=== PATIENT | female | born 1985 | race Caucasian/White ===

== ENCOUNTER 2020-06-27 22:16 | Emergency (ER) | payer SELFPAY ==
[2020-06-27 22:17] VITALS: BP 122/76; PULSE 75; RESP 18; TEMP 36.2; O2SAT 98; BMI 26.6
--- NOTE | 2020-06-27 22:36 | ED.DCSUM_ITS ---
- ER Visit Summary Date of Service: 06/27/20 Chief Complaint: Slipped and fell complaining lower back pain History of Present Illness: The patient is a 35 F history of prior compression fracture to her back. Prior appendectomy and gastric bypass. No prior back surgery. Patient has a history of compression fracture. States she was leaving her house tonight slipped and fell landing on her buttock on her porch. Plan low back pain. No bowel or bladder incontinence. No radiation to her legs. No weakness. Did not hit her head. No LOC. No neck pain. Prior to the fall she was feeling fine. Physical Examination: Young female no acute distress vital signs stable afebrile. H EENT exam unremarkable. No signs of trauma to her face. She has multiple tattoos and piercings. C-spine nontender. Trachea midline. Lungs clear to auscultation bilaterally. Heart regular rhythm no murmur. Chest were nontender. Abdomen soft nontender normal bowel sounds no peritoneal signs. Pelvic girdle intact. Patient moving all 4 extremities. Neurovascular intact. Nontender. No deformity. Normal range of motion. Normal strength and sensation. Both lower extremities have normal medial thigh sensation. No cauda equina. No saddle anesthesia. Back exam C-spine and T-spine nontender diffuse tenderness over the LS-spine and also perispinal soft tissues. No ecchymosis or bruising. Neurologically she is awake and alert with no focal motor or sensory deficits. Again no signs of cauda equina. Test Results: Offered LS-spine x-ray patient deferred. She stated I do not think I broke anything. Emergency Department Course and Treatment: [place] p.o. x2 here. Treatment Plan: Ice to the back. Hot shower warm bath. Massage. Alternate Tylenol Motrin for pain. Follow-up if not improving. X-ray if not improving. Disposition: Discharge Impression: Acute fall Lumbar strain and contusion This note was generated with [employer] dictation software. It may contain incorrect words, spelling, and punctuation that were not noted in review of the chart prior to signing ED Disposition - Plan for ED Patient: Referrals: NOT,DEFINED [Primary Care Provider] -
--- NOTE | 2020-06-27 22:39 | ED.DEP ---
ED Disposition - Plan for ED Patient: Disposition: Home or Assisted Living Instructions: ED Contusion Back Referrals: Wesly Robert MD [NON-STAFF] - 1 Week if not improving Additional Instructions: History her back to decrease inflammation. Hot shower warm bath and massage to decrease muscle spasm and tightening. Alternate Motrin for pain and inflammation and Tylenol for pain. Follow-up with not improving or return if worse. If not improving you may need an x-ray to rule out a compression fracture.
[2020-06-27 22:49] VITALS: RESP 16
[2020-06-27] MEDS: HYDROcodone Bitartrate/Apap 5/325 Tablet PO (22:51)
== END 2020-06-27 22:56 | disposition home or self-care (01) ==
LOC: ED 22:56
PROVIDERS: Emergency Provider Emergency Medicine
DX: S39.012A Strain of muscle, fascia and tendon of lower back, initial encounter (principal); S30.0XXA Contusion of lower back and pelvis, initial encounter; W01.0XXA Fall on same level from slipping, tripping and stumbling without subsequent striking against object, initial encounter; Y93.9 Activity, unspecified; Y92.9 Unspecified place or not applicable; Z98.84 Bariatric surgery status; Z72.0 Tobacco use
CPT/HCPCS: 99283

== ENCOUNTER 2020-08-15 13:16 | Emergency (ER) | payer SELFPAY ==
[2020-08-15 13:16] VITALS: BP 135/67; PULSE 98; RESP 16; TEMP 36.3; O2SAT 99; BMI 26.8
--- NOTE | 2020-08-15 13:20 | RAD_ITS ---
STUDY: X-RAY - UNILATERAL RIBS ( LEFT ) WITH CHEST REASON FOR EXAM: Female, 35 years old. ANTERIOR MID LEFT RIB PAIN X2 DAYS, NKI. PT UNABLE TO REMOVE PIERCINGS FOR EXAM TECHNIQUE - RIBS: 4 view(s) of the ribs. TECHNIQUE - CHEST: Single PA view of the chest. COMPARISON: None. FINDINGS - RIBS: Normal visualized ribs without a demonstrated fracture. FINDINGS - CHEST: The lungs are clear and expanded. There is no demonstrated pleural abnormality. Normal size heart. Normal mediastinum and rocco. Normal visualized pulmonary arteries. Normal visualized aortic arch and descending thoracic aorta. Normal visualized thoracic spine. Normal visualized ribs, clavicles, and shoulders. There is no demonstrated abnormality of the visualized soft tissue structures of the upper abdomen. RAD/Ribs Uni Min 3V w/PA Chest IMPRESSION: RIBS: Normal x-ray examination of the ribs. CHEST: Normal x-ray examination of the chest. Electronically Signed: Wing Cali, at 13:50 EDT , Service support ,
--- NOTE | 2020-08-15 14:27 | ED.DCSUM_ITS ---
History of Present Illness Chief Complaint: Chest Other Narrative: Patient presents with left rib pain after a fall. She has reproducible left- sided chest pain she has no fever chills cough or congestion she has no back pain. She has no difficulty breathing. She also wants a refill for herpes medication she just had an outbreak and did not have any medications but it seems to be subsiding and it is now almost gone. Past Medical History - Allergies and Home Meds Allergies/Adverse Reactions: Allergies aspirin Allergy (Verified 08/15/20 13:18) Anaphylaxis Sulfa (Sulfonamide Antibiotics) Allergy (Verified 08/15/20 13:18) Hives Primary Care Physician: Care Physician,No Primary [Primary Care Provider] - Past Medical History: - - History of gastric bypass Smoking Status: Current every day smoker Review of Systems General: Denies: Fever Cardiovascular: Reports: Chest pain. Denies: Palpitations, Heart racing Respiratory: Denies: Dyspnea, Cough, Sputum Gastrointestinal: Denies: Abdominal pain, Nausea, Vomiting Genitourinary: Denies: Dysuria Musculoskeletal: Denies: Myalgias Skin: Denies: Rash Neurological: Denies: Headache Psych: Denies: Depression Hematologic: Denies: Easy bruising Physical Exam Vital Signs/Narrative: Vital Signs Temp Pulse Resp BP Pulse Ox 08/15/20 13:16 97.3 F L 98 16 135/67 H 99 General: Well nourished, Well developed ENT: Moist mucous membranes Cardiovascular: Regular rate, Regular rhythm Respiratory: No distress, Chest tenderness, - - There is left lower rib tenderness to palpation it is quite reproducible although I do not see any bruising. Abdomen: Soft, Nontender Back: Nontender, Normal Inspection. Negative for: CVA tenderness Extremities: Nontender, No edema Skin: Normal color Neurological: Normal Strength, Normal Sensation Diagnostic/Tx/Re-eval - Medical Decision Making Patient has an unremarkable x-ray. There is no evidence of fractures. I will treat her with analgesia per her request I will give her Valtrex for the next outbreak. ED Disposition - Plan for ED Patient: Disposition: Psychiatric Hospital or Unit Diagnosis: Rib contusion, Genital herpes Instructions: ED CHEST CONTUSION, ED Herpes Simplex Virus Type 2 Prescriptions: Naproxen [Naprosyn] 500 mg PO BID PRN #20 tab Prescription Printed Valacyclovir HCl [Valtrex] 1,000 mg PO BID #6 tab Prescription Printed Referrals: Care Physician,No Primary [Primary Care Provider] -
== END 2020-08-15 14:46 | disposition home or self-care (01) ==
PROVIDERS: Emergency Provider Emergency Medicine
DX: S20.212A Contusion of left front wall of thorax, initial encounter (principal); A60.00 Herpesviral infection of urogenital system, unspecified; W19.XXXA Unspecified fall, initial encounter; Y93.9 Activity, unspecified; Y92.9 Unspecified place or not applicable; Z98.84 Bariatric surgery status; F17.200 Nicotine dependence, unspecified, uncomplicated
CPT/HCPCS: 71101; 99282

== ENCOUNTER 2020-10-08 16:26 | Emergency (ER) | payer SELFPAY ==
[2020-10-08 16:27] VITALS: BP 125/76; PULSE 91; RESP 16; TEMP 35.9; O2SAT 100; BMI 25.8
--- NOTE | 2020-10-08 16:39 | ED.VIS.GEN ---
History of Present Illness Chief Complaint: Back Informant: Patient Narrative: Patient presents for the evaluation of back pain. The patient tells me the symptoms began after yesterday morning of the day before. Is progressively gotten worse. She notes painful range of motion. She notes sharp shooting pains to her hips. She tells me that she gets paresthesias in the left leg. This is a recurrent issue for the past several years. Tells me she was thrown from a horse and sustained several back fractures about 4 years ago for which she was treated in [place]. She tells me she was supposed to follow-up with spine surgery but missed the appointments. She denies any known trauma. She denies any bowel or bladder dysfunction. No fevers chills rashes or IV drug use. No neurologic deficits. She tells me that normally she can rest for a day or 2 and it resolves. Today she attempted to work but could not. Past Medical History - Allergies and Home Meds Allergies/Adverse Reactions: Allergies aspirin Allergy (Verified 10/08/20 16:29) Anaphylaxis Sulfa (Sulfonamide Antibiotics) Allergy (Verified 10/08/20 16:29) Hives Primary Care Physician: Care Physician,No Primary [Primary Care Provider] - Past Medical History: - - Traumatic lumbar fractures Surgical History: noncontributory Lives: Roommate Smoking Status: Unknown if ever smoked Drugs: None Review of Systems General: Denies: Chills, Fever, Sweats Eyes: Denies: Visual changes - bilaterally, Diplopia ENT: Denies: Rhinorrhea, Sore throat Cardiovascular: Denies: Chest pain, Palpitations Respiratory: Denies: Dyspnea, Cough, Dyspnea on exertion Gastrointestinal: Denies: Abdominal pain, Nausea, Vomiting, Diarrhea, Melena, Hematochezia Genitourinary: Denies: Dysuria, Hematuria, Frequency Musculoskeletal: Reports: Back pain. Denies: Extremity Pain Skin: Denies: Rash, Wounds Neurological: Reports: Parasthesia. Denies: Headache, Weakness, Numbness Physical Exam Vital Signs/Narrative: Vital Signs Temp Pulse Resp BP Pulse Ox 10/08/20 16:27 96.6 F L 91 16 125/76 H 100 Inital Vital Signs reviewed: Yes General: Well nourished, Well developed, No Acute Distress Head: Normocephalic, Atraumatic Eyes: Perrl, EOMI ENT: Moist mucous membranes, No rhinorrhea Neck: Supple, Nontender Cardiovascular: Regular rate, Regular rhythm, No murmurs Respiratory: No distress, CTA bilaterally, Chest nontender Abdomen: Soft, Nontender, Nondistended, Normal bowel sounds Back: - - Patient has slow painful range of motion. She has paraspinal lumbar muscle spasm. There are no skin findings to suggest abscess. Extremities: Nontender, No edema Skin: Normal color, No rash Neurological: Alert, Oriented x3, Cranial nerves II-XII grossly intact, Normal Strength, Normal Sensation Psychological: Normal affect, Normal Mood Diagnostic/Tx/Re-eval - Medical Decision Making Patient woke up with symptoms either yesterday or the day before. She has no neurologic deficits. She has exam consistent with muscular spasm. I have low suspicion for cauda equina, abscess, or acutely herniated disc. I am going to write for a few [place], Motrin, Flexeril and going to recommend she follow-up with spine. ED Disposition - Plan for ED Patient: Disposition: Home or Assisted Living Diagnosis: Lumbar paraspinal muscle spasm Instructions: ED Back Spasm, No Trauma Prescriptions: cycloBENZAPRine HCl [Flexeril] 10 mg PO TID PRN #15 tab PRN Reason: Muscle Spasm Prescription Printed Ibuprofen [Motrin] 800 mg PO TID PRN PRN #20 tab PRN Reason: Pain Prescription Printed Hydrocodone Bitart/Apap 5-325 [[place] 5MG-325MG] 1 tab PO Q6H PRN PRN 3 Days #10 tab PRN Reason: Pain Prescription Printed Referrals: Eliot Edgar DO [STAFF PHYSICIAN] - As soon as possible
== END 2020-10-08 16:53 | disposition home or self-care (01) ==
LOC: ED 16:51
PROVIDERS: Emergency Provider Emergency Medicine
DX: M62.830 Muscle spasm of back (principal); M54.5 Low back pain; R20.2 Paresthesia of skin
CPT/HCPCS: 99282

== ENCOUNTER 2020-11-23 07:40 | Observation (INO) | payer MEDICAID, SELFPAY ==
[2020-11-23] VITALS (16 sets, daily range): BP systolic 99–127; BP diastolic 56–75; PULSE 51–70; RESP 16–17; TEMP 36.4–37.2; O2SAT 94–100; BMI 25.8
--- NOTE | 2020-11-23 08:09 | ED.VISSUMM ---
- ER Visit Summary Date of Service: 11/23/20 Chief Complaint: Abdominal pain History of Present Illness: The patient is a 35 F history of prior gastric bypass surgery in which she used to weigh over 300 pounds and currently weighs 160. Patient states that after the surgery she did develop issues with gastric and esophageal ulcers. She has had bleeding ulcers in the past. States that she currently has no physician. Is been out of her omeprazole which she is supposed to take 40 mg a day. Was taking it more frequently because she was developing pain. Has been out of medications last 6 days. Has had burning left upper quadrant abdominal pain. Associated nausea and vomiting. Associated dark stools. And at times small amount of blood in her emesis. No clots. She denies fever or chills. No right upper or right lower quadrant abdominal pain. She is also had a prior appendectomy and . She is urinating and having bowel movements. Physical Examination: Young female vital signs are stable and afebrile. She does not look septic or toxic. HEENT exam unremarkable. Neck nontender. Lungs clear to auscultation bilaterally. Heart regular rhythm no murmur. Abdomen is soft. Tender in the left upper quadrant. Normal bowel sounds. No peritoneal signs. She is moving all 4 extremities. Calves are nontender without edema. Neurologically awake and alert with no focal motor deficits. Skin unremarkable other than multiple tattoos. Test Results: White count 8. Hemoglobin is 8.8 we do not have any old labs on this patient she is never had a history of anemia I suspect that she has having blood loss from her ulcerations. And GI bleed. Chemistries are unremarkable normal BUN and creatinine. Liver enzymes and lipase were normal. Emergency Department Course and Treatment: Patient has left upper quadrant abdominal pain. Concern is for peptic ulcer disease exacerbation and/or bleeding ulcers. She will be treated with IV fluids, Zofran for nausea and IV Protonix. Labs are being obtained. Treatment Plan: Patient treated also with morphine and Zofran for pain and additional nausea. She is already been given Protonix. I discussed her labs with her. She is comfortable with admission. I have already spoken to the hospitalist. Disposition: Admission Impression: Acute abdominal pain secondary to suspected gastric ulcers Acute anemia secondary to suspected upper GI bleed History of prior gastric bypass History of peptic ulcer disease This note was generated with Dragon dictation software. It may contain incorrect words, spelling, and punctuation that were not noted in review of the chart prior to signing ED Disposition - Plan for ED Patient: Referrals: Care Physician,No Primary [Primary Care Provider] -
[2020-11-23] MEDS: Ondansetron 4 MG/2 ML Vial IV ×2 (08:14→08:58)
[2020-11-23] MEDS: 0.9% Normal Saline 1,000 ML 125 ML IV ×3 (08:14→22:02)
[2020-11-23 08:24] LABS: Absolute Lymphocyte Count 1.44 X10^3/uL (0.83-4.51); Basophil# 0.03 X10^3/uL; Basophil% 0.4 % (0-1); Eosinophil# 0.03 X10^3/uL; Eosinophils% 0.4 % (0-5); Hematocrit 31.7 % (37-47); Hemoglobin 8.8 g/dL (12.0-15.0); Lymphocyte # 1.44 X10^3/ul (4.0); Lymphocyte % 17.8 % (19-41); Mean Corp Hgb Conc 27.8 g/dL (32-36); Mean Corpuscular Hgb 18.2 pg (27.0-32.0); Mean Corpuscular Volume 65.5 fL (81-99); Mean Platelet Vol. 8.4 fl (6.2-12.0); Monocyte% 7.4 % (0-10); NRBC Flagged by Analyzer 0 % (0-5); Neutrophil # 5.98 X10^3/uL (2.7-7.7); Neutrophil % 73.6 % (47-70); Platelet Count 481 K/mm3 (150-450); RBC Distribution Width CV 17.9 % (11.6-14.6); RBC Distribution Width SD 41.5 fl (35.1-43.9); Red Blood Count 4.84 M/mm3 (4.2-5.4); White Blood Count 8.1 K/mm3 (4.4-11.0)
[2020-11-23 08:35] LABS: AST(SGOT) 9 U/L (15-37); Alanine Aminotransfer ALT/SGPT 15 U/L (13-56); Albumin, Serum 3.8 g/dL (3.2-5.0); Alkaline Phosphatase 71 U/L (45-117); Anion Gap 5 (5-15); BUN 8 mg/dL (7-18); BUN/Creat Ratio 11.4 RATIO (10-20); Calcium,Total 9.1 mg/dL (8.5-10.1); Chloride 106 mmol/L (98-107); EST Glomerular Filtration Rate 100 mL/min (>60); Est Glom Filt Rate - Afr Amer 121 mL/min (>60); Estimated Creatinine Clearance 104.01 ml/min; Glucose 99 mg/dL (74-106); Lipase 167 U/L (73-393); Potassium 3.9 mmol/L (3.5-5.1); Protein, Total 7.8 g/dL (6.4-8.2); Sodium Level 138 mmol/L (136-145)
[2020-11-23] MEDS: morphine 8 MG/ML Syringe IV (08:58)
--- NOTE | 2020-11-23 09:48 | HP.PCM_ITS ---
Problem List (1) Hypertension Status: Chronic (2) History of gastric bypass surgery Status: Chronic (3) History of anastomotic ulcer Status: Chronic (4) Acute GI bleed Status: Acute (5) Acute blood loss anemia Status: Acute History of Present Illness Date of Admission: 11/23/20 Chief Complaint: Hematemesis and melena for 3 to 4 days The patient is a 35 year old F history of morbid obesity status post gastric bypass surgery in 2016 and then repeat EGD in same year as per patient showed ulcer in her lower esophagus and gastric remnant probably marginal/anastomotic ulcer and history of recurrent GI bleed, anemia came to ER with progressive increase abdominal pain for 4 days. She ran out of her omeprazole about 6 days ago which she was taking 40 mg twice daily. She is having a small amount of coffee-ground emesis and black tarry melena small amount for last 4 days which is getting more frequent. Describes abdominal pain as mid central and upper, constant with heartburn and acid reflux. No fever or chills. Denies recent Covid related symptoms including cough, shortness of breath chest pain or suspected Covid exposure. In the ED, blood pressure in systolic 120s and heart rate in 90s. Patient had 80 mg IV Protonix bolus, ondansetron and morphine IV along with IV fluid normal saline 125 mill per hour. [] Past Medical History Past Medical History (Chronic Problems): Chronic Problems Hypertension (Chronic) History of gastric bypass surgery (Chronic) History of anastomotic ulcer (Chronic) Allergies aspirin Allergy (Verified 11/23/20 07:41) Anaphylaxis Sulfa (Sulfonamide Antibiotics) Allergy (Verified 11/23/20 07:41) Hives Home Medications: Ambulatory Orders Medication Instructions Recorded NK 11/23/20 Surgical History: noncontributory Smoking Status: Former smoker - Quit smoking prior to weight loss surgery Alcohol: None Drugs: None - *Family History Paternal History Items: Heart Disease Review of Systems Constitutional: Reports: Anorexia, Malaise, Weakness, Fatigue. Denies: Chills, Fever, Weight Change HEENT: Denies: Head Aches, Sinus Congestion, Sinus Drainage Cardiovascular: Denies: Chest Pain, Palpitations Respiratory: Denies: Cough, Shortness of breath at rest, Sputum production Gastrointestinal: Reports: Abdominal Pain, Hematemesis, Nausea, Melena, Vomiting. Denies: Hematochezia Genitourinary: Denies: Dysuria, Frequency, Hesitancy Musculoskeletal: Denies: Joint Pain, Joint Tenderness Skin: Denies: Rash, Wounds Neurological: Denies: Numbness, Tingling, Focal weakness Psychiatric: Denies: Anxiety, Depression, Homicidal Ideations, Suicidal Ideations Hematologic/ Lymphatic: Denies: Easy Bruising, Easy Bleeding VTE Information - Inpt Only VTE Present on Admission: No VTE Mechan Device Prophylaxis: SCD's VTE Pharm Prophylaxis ordered?: No Reason prophylaxis not ordered:: Medical Contraindication - Active GI bleed Patient Problems: Active and Suspected Problems Acute GI bleed (Acute) Acute blood loss anemia (Acute) - Physical Exam Vitals/I&O's: Vital Signs Temp Pulse Resp BP Pulse Ox 98.1 F 69 17 127/72 H 100 11/23/20 07:41 11/23/20 07:41 11/23/20 07:41 11/23/20 07:41 11/23/20 07:41 Oxygen Delivery Method Room Air Weight: 160 lb Body Mass Index (BMI) 25.8 General: Alert, Oriented x3, Cooperative HEENT: Atraumatic, PERRLA, EOMI, Normocephalic Oral: No Gingival or Mucosal Lesions/ Ulcerations, Dry Mucosa Neck: Supple, No JVD, Negative Carotid Bruits Lungs: Clear to auscultation, Normal air movement, No rhonchi, No wheeze, No rales Cardiovascular: Regular rate, Regular Rhythm, Normal S1, Normal S2, No murmurs Abdomen: Bowel Sounds Present, Soft, Non-Distended, Passing Flatus, Tender - Mild diffuse tenderness present in epigastrium, umbilical region and flanks. No guarding/rigidity. No palpable mass. Extremities: No edema, Capillary Refill Less than 3 Seconds Skin: No rashes, No breakdown Musculoskeletal: No Tenderness to Palpation of Joints or Extremities Neurological: Cranial nerves II-XII grossly intact, Deep Tendon Reflexes 2+/4 and Symmetrical, Neuro grossly intact, Motor Exam 5/5 strength throughout Psych/Mental Status: Normal Affect, Appropriate Microbiology Past 72 Hours 11/23/20 09:10 Mucosa - Nose SARS-CoV-2 Antigen (Rapid) - Final Laboratory Results 11/23/20 08:10: WBC 8.1, RBC 4.84, Hgb 8.8 L, Hct 31.7 L, MCV 65.5 L, MCH 18.2 L , MCHC 27.8 L, RDW Std Deviation 41.5, RDW Coeff of Deborah 17.9 H, Plt Count 481 H, MPV 8.4, Immature Gran % (Auto) 0.400, Neut % (Auto) 73.6 H, Lymph % (Auto) 17.8 L, [place] % (Auto) 7.4, Eos % (Auto) 0.4, Baso % (Auto) 0.4, Absolute Neuts (auto) 6.0, Absolute Lymphs (auto) 1.44, Nucleated RBC % 0 11/23/20 08:10: Sodium 138, Potassium 3.9, Chloride 106, Carbon Dioxide 27.0, Anion Gap 5, BUN 8, Creatinine 0.70, Estim Creat Clear Calc 104.01, Est GFR (MDRD) Af Amer 121, Est GFR (MDRD) Non-Af 100, BUN/Creatinine Ratio 11.4, Glucose 99, Calcium 9.1, Total Bilirubin 0.20, AST 9 L, ALT 15, Alkaline Phosph atase 71, Total Protein 7.8, Albumin 3.8, Globulin 4.0, Albumin/Globulin Ratio 1.0, Lipase 167 11/23/20 08:42: Blood Type A NEGATIVE, Antibody Screen NEGATIVE Current Medications Sodium Chloride () 1,000 mls @ 125 mls/hr IV .Q8H [facility] Last Admin: 11/23/20 08:14 Dose: 125 mls/hr Documented by: Assessment/Plan All Active Problems Acute GI bleed (Acute) Acute blood loss anemia (Acute) 35-year-old female with history of gastric bypass surgery and marginal/anastomotic ulcer came to ED with upper GI bleed and acute blood loss anemia 1. Acute upper GI bleed: Patient is being admitted in PCU. Patient had 80 mg IV Protonix bolus. Continue Protonix IV 40 mg twice daily. Monitor H&H every 8 hourly and if is less than 7 g, will transfuse PRBC. Type and crossmatch ordered by ER physician. Monitor intake and output and hydration status. Discussed with Dr. Beltran who is being consulted for EGD. Rapid SARS-CoV-2 antigen, preop requirement is done and negative. 2. Acute blood loss anemia: Patient hemoglobin 8.8 g with low MCV, MCH and MCHC and high RDW suggestive of iron deficiency anemia. 200 mg IV iron infusion ordered. After EGD will need further oral iron supplement. 3. Morbid ascites status post gastric bypass surgery and history of marginal/stenotic ulcer 4. Hypertension: Currently blood pressure is normotensive. VTE prophylaxis: Low risk. Bilateral SCDs. Inpatient E&M: 50176 Init Hosp L3
--- NOTE | 2020-11-23 10:27 | PCM.CONS.GEN ---
Problem List (1) Acute GI bleed Status: Acute (2) Acute blood loss anemia Status: Acute (3) History of anastomotic ulcer Status: Chronic (4) History of gastric bypass surgery Status: Chronic Reason for Consult Date of Consultation: 11/23/20 History of Present Illness: The patient is a 35 year old F history of morbid obesity status post gastric bypass surgery in 2016 and then repeat EGD in same year as per patient showed ulcer in her lower esophagus and gastric remnant probably marginal/anastomotic ulcer and history of recurrent GI bleed, anemia came to ER with progressive increase abdominal pain for 4 days. She ran out of her omeprazole about 6 days ago which she was taking 40 mg twice daily. She is having a small amount of coffee-ground emesis and black tarry melena small amount for last 4 days which is getting more frequent. Describes abdominal pain as mid central and upper, constant with heartburn and acid reflux. No fever or chills. Denies recent Covid related symptoms including cough, shortness of breath chest pain or suspected Covid exposure. In the ED, blood pressure in systolic 120s and heart rate in 90s. Patient had 80 mg IV Protonix bolus, ondansetron and morphine IV along with IV fluid normal saline 125 mill per hour. Past Medical History Past Medical History (Chronic Problems): Chronic Problems Hypertension (Chronic) History of gastric bypass surgery (Chronic) History of anastomotic ulcer (Chronic) Allergies aspirin Allergy (Verified 11/23/20 07:41) Anaphylaxis Sulfa (Sulfonamide Antibiotics) Allergy (Verified 11/23/20 07:41) Hives Home Medications: Ambulatory Orders Medication Instructions Recorded NK 11/23/20 Surgical History: appendectomy, gastric bypass - Patient had significant complications from her gastric bypass. Smoking Status: Former smoker - Quit smoking prior to weight loss surgery Alcohol: None Drugs: None - *Family History Paternal History Items: Heart Disease Review of Systems Constitutional: Reports: Anorexia, Malaise, Weakness Cardiovascular: Denies: Chest Pain, Chest Pressure, Chest Tightness, Palpitations Respiratory: Denies: Cough, Hemoptysis, Shortness of breath at rest, Shortness of breath upon exertion, Wheezing Gastrointestinal: Reports: Abdominal Pain Genitourinary: Denies: Dysuria, Frequency, Hematuria, Urgency Patient Problems: Active and Suspected Problems Acute GI bleed (Acute) Acute blood loss anemia (Acute) - Physical Exam Vitals/I&O's: Vital Signs Temp Pulse Resp BP Pulse Ox 98.1 F 70 16 119/75 100 11/23/20 10:16 11/23/20 10:16 11/23/20 10:16 11/23/20 10:16 11/23/20 10:16 Oxygen Delivery Method Room Air Weight: 160 lb Body Mass Index (BMI) 25.8 Intake and Output for Last 24 Hours 11/21/20 11/22/20 11/23/20 23:59 23:59 23:59 Intake Total 35 / 35 Balance 35 / 35 General: Alert, Oriented x3 Lungs: Clear to auscultation Cardiovascular: Regular rate, Regular Rhythm, No murmurs Abdomen: Bowel Sounds Present, Soft, Non-Distended, Tender Microbiology Past 72 Hours 11/23/20 09:10 Mucosa - Nose SARS-CoV-2 Antigen (Rapid) - Final Laboratory Results 11/23/20 08:10: WBC 8.1, RBC 4.84, Hgb 8.8 L, Hct 31.7 L, MCV 65.5 L, MCH 18.2 L, MCHC 27.8 L, RDW Std Deviation 41.5, RDW Coeff of Deborah 17.9 H, Plt Count 481 H, MPV 8.4, Immature Gran % (Auto) 0.400, Neut % (Auto) 73.6 H, Lymph % (Auto) 17.8 L, [place] % (Auto) 7.4, Eos % (Auto) 0.4, Baso % (Auto) 0.4, Absolute Neuts (auto) 6.0, Absolute Lymphs (auto) 1.44, Nucleated RBC % 0 11/23/20 08:10: Sodium 138, Potassium 3.9, Chloride 106, Carbon Dioxide 27.0, Anion Gap 5, BUN 8, Creatinine 0.70, Estim Creat Clear Calc 104.01, Est GFR (MDRD) Af Amer 121, Est GFR (MDRD) Non-Af 100, BUN/Creatinine Ratio 11.4, Glucose 99, Calcium 9.1, Total Bilirubin 0.20, AST 9 L, ALT 15, Alkaline Phosphatase 71, Total Protein 7.8, Albumin 3.8, Globulin 4.0, Albumin/Globulin Ratio 1.0, Lipase 167 11/23/20 08:42: Blood Type A NEGATIVE, Antibody Screen NEGATIVE Current Medications Sodium Chloride () 1,000 mls @ 125 mls/hr IV .Q8H [facility] Last Admin: 11/23/20 08:14 Dose: 125 mls/hr Documented by: Assessment/Plan All Active Problems Acute GI bleed (Acute) Acute blood loss anemia (Acute) Plan will be to perform an esophagogastrojejunoscopy. Risk benefits to the procedure including bleeding infection possible injury to intestines have been reviewed with the patient and the patient agrees to proceed. All questions asked were answered. Office Visits / Consults: [id number] IP Consult L3 - Modifier [id number]
--- NOTE | 2020-11-23 10:55 | PCS.PANDOC ---
PANDEMIC DOCUMENTATION INITIATED: Date: 11/23/20 Time: 8303
[2020-11-23 11:10] LABS: Magnesium 2.2 mg/dL (1.6-2.6)
--- NOTE | 2020-11-23 11:26 | OP.CCLET_ITS ---
11/23/2020 No Primary Care Physician Re : Upper GI endoscopy procedure for Andree Rojas Dear Care Physician This procedure was performed on Monday, November 23, 2020. My impressions and recommendations are as follows: Impressions : - LA Grade A reflux esophagitis. No specimens collected. - Normal cardia. - One non-bleeding jejunal ulcer with pigmented material No specimens collected. Recommendations : - [facility] to [facility]. - Full liquid diet. - Use Protonix (pantoprazole) 80 mg IV daily daily. - Repeat upper endoscopy in 6 weeks to evaluate the response to therapy. - Return to my office in 2 weeks. - It is fairly remarkable that the patient has 2 processes going on. She has significant esophagitis as well as a marginal ulcer. While in the hospital she will need to have aggressive proton pump therapy as well as Carafate and she will need to continue this going home. She should probably have a repeat upper endoscopy within 6 weeks to evaluate response to therapy. - Continue present medications. My findings are described in the full procedure note, which is enclosed. If I can be of further assistance, please feel free to contact me at Doctor phone number(s): , Fax: [phone], Work: . Sincerely, MD Berny Reis MD 11/23/2020 11:26:26 AM This report has been signed electronically.
--- NOTE | 2020-11-23 11:26 | OP.EGD_ITS ---
Patient Name: Andree Rojas Procedure Date: 11/23/2020 10:55 AM Date of : 1985 Age: 35 Procedure: Upper GI endoscopy Indications: Epigastric abdominal pain, Acute post hemorrhagic anemia, Coffee-ground emesis Providers: Berny Beltran MD Medicines: See the Anesthesia note for documentation of the administered medications Patient Profile: This is a 35 year old female. Refer to note in patient chart for documentation of history and physical. Complications: No immediate complications. Procedure: Pre-Anesthesia Assessment: - Prior to the procedure, a History and Physical was performed, and patient medications and allergies were reviewed. The patient's tolerance of previous anesthesia was also reviewed. The risks and benefits of the procedure and the sedation options and risks were discussed with the patient. All questions were answered, and informed consent was obtained. Prior Anticoagulants: The patient has taken no previous anticoagulant or antiplatelet agents. ASA Grade Assessment: II - A patient with mild systemic disease. After reviewing the risks and benefits, the patient was deemed in satisfactory condition to undergo the procedure. After obtaining informed consent, the endoscope was passed under direct vision. Throughout the procedure, the patient's blood pressure, pulse, and oxygen saturations were monitored continuously. The gastroscope was introduced through the mouth, and advanced to the afferent jejunal loop. The upper GI endoscopy was accomplished without difficulty. The patient tolerated the procedure well. Scope In: 11:10:58 AM Scope Out: 11:14:28 AM Total Procedure Duration Time 0 hours 3 minutes 30 seconds Findings: LA Grade C (one or more mucosal breaks continuous between tops of 2 or more mucosal folds, less than 75% circumference) esophagitis with no bleeding was found at the gastroesophageal junction. No biopsies or other specimens were collected for this exam. The cardia was normal. One non-bleeding cratered ulcer with pigmented material was found distal to the gastrojejunal anastomosis. The lesion was 7 mm in largest dimension. No biopsies or other specimens were collected for this exam. Impression: - LA Grade A reflux esophagitis. No specimens collected. - Normal cardia. - One non-bleeding jejunal ulcer with pigmented material No specimens collected. Recommendation: - Return patient to [facility] for [facility] care. - Full liquid diet. - Use Protonix (pantoprazole) 80 mg IV daily daily. - Repeat upper endoscopy in 6 weeks to evaluate the response to therapy. - Return to my office in 2 weeks. - It is fairly remarkable that the patient has 2 processes going on. She has significant esophagitis as well as a marginal ulcer. While in the hospital she will need to have aggressive proton pump therapy as well as Carafate and she will need to continue this going home. She should probably have a repeat upper endoscopy within 6 weeks to evaluate response to therapy. - Continue present medications. Procedure Code(s): --- Professional --- 88126, Esophagogastroduodenoscopy, flexible, transoral; diagnostic, including collection of specimen(s) by brushing or washing, when performed (separate procedure) Diagnosis Code(s): --- Professional --- K21.0, Gastro-esophageal reflux disease with esophagitis K28.9, Gastrojejunal ulcer, unspecified as acute or chronic, without hemorrhage or perforation R10.13, Epigastric pain D62, Acute posthemorrhagic anemia K92.0, Hematemesis CPT copyright 2017 [employer]. All rights reserved. The codes documented in this report are preliminary and upon payroll and benefits analyst review may be revised to meet current compliance requirements. MD Berny Reis MD 11/23/2020 11:26:26 AM This report has been signed electronically. Number of Addenda: 0 Note Initiated On: 11/23/2020 10:55 AM
[2020-11-23] MEDS: Sodium Ferric Gluconat 250 MG in 0.9% Normal Saline 250 ML 135 MG IV (12:06)
[2020-11-23] MEDS: oxyCODONE 5 MG Tablet PO (12:32)
[2020-11-23] MEDS: Acetaminophen 325 MG Tablet 650 MG PO (12:32)
[2020-11-23] MEDS: Sucralfate 1 GM Tablet PO ×3 (14:26→21:28)
--- NOTE | 2020-11-23 14:31 | CASEMGMT ---
SW spoke with patient regarding self pay status. She was on Medicaid, then she got a job and lost her Medicaid, and now she lost her job so she reapplied for Medicaid. She was approved, but has not received any information yet. She is not able to pay for her discharge medications as she has no job and no money. She just moved back to [facility]. ANGELITO gave her a packet of resources. ANGELITO also told her [facility] can assist patient's in need with d/c medications one time per year. ANGELITO told her that the pharmacy closes at 1p tomorrow so SW will try and pass along that her d/c meds need to be at the pharmacy prior to it closing so she can utilize [facility] prescription assistance program. Randi BLAS MSW
[2020-11-23 14:36] LABS: Hematocrit 26.7 % (37-47); Hemoglobin 7.6 g/dL (12.0-15.0)
[2020-11-23] MEDS: 0.9% Saline Lock 10 ML Syringe IV (18:19)
[2020-11-23] MEDS: HYDROmorphone 0.5 MG/0.5 ML SYRINGE IV ×2 (18:19→22:29)
[2020-11-23 20:14] LABS: Hematocrit 26.4 % (37-47); Hemoglobin 7.3 g/dL (12.0-15.0)
[2020-11-24 03:00] VITALS: PULSE 59
[2020-11-24 05:14] VITALS: BP 108/66; PULSE 61; RESP 18; TEMP 36.6; O2SAT 99
[2020-11-24] MEDS: HYDROmorphone 0.5 MG/0.5 ML SYRINGE IV (05:16)
[2020-11-24] MEDS: Sucralfate 1 GM Tablet PO (06:24)
[2020-11-24] MEDS: 0.9% Normal Saline 1,000 ML 125 ML IV (06:24)
[2020-11-24 07:00] VITALS: PULSE 61
[2020-11-24 08:01] LABS: Absolute Lymphocyte Count 1.47 X10^3/uL (0.83-4.51); Absolute Neutrophil Count 2.9 X10^3/uL (2.0-7.7); Basophil# 0.05 X10^3/uL; Eosinophil# 0.06 X10^3/uL; Eosinophils% 1.2 % (0-5); Hematocrit 27.9 % (37-47); Lymphocyte # 1.47 X10^3/ul (4.0); Lymphocyte % 29.3 % (19-41); Mean Corp Hgb Conc 28.7 g/dL (32-36); Mean Corpuscular Hgb 19.2 pg (27.0-32.0); Mean Corpuscular Volume 67.1 fL (81-99); Mean Platelet Vol. 8.9 fl (6.2-12.0); Monocyte# 0.51 X10^3/uL; Monocyte% 10.2 % (0-10); NRBC Flagged by Analyzer 0.4 % (0-5); Neutrophil # 2.91 X10^3/uL (2.7-7.7); Neutrophil % 57.9 % (47-70); Platelet Count 389 K/mm3 (150-450); RBC Distribution Width CV 18.1 % (11.6-14.6); RBC Distribution Width SD 42.5 fl (35.1-43.9); Red Blood Count 4.16 M/mm3 (4.2-5.4)
[2020-11-24 08:06] VITALS: O2SAT 100
[2020-11-24 08:31] LABS: Anion Gap 5 (5-15); BUN 5 mg/dL (7-18); BUN/Creat Ratio 8.1 RATIO (10-20); Calcium,Total 8.7 mg/dL (8.5-10.1); Chloride 110 mmol/L (98-107); Creatinine, Serum 0.61 mg/dL (0.55-1.02); EST Glomerular Filtration Rate 117 mL/min (>60); Est Glom Filt Rate - Afr Amer 141 mL/min (>60); Estimated Creatinine Clearance 119.36 ml/min; Glucose 84 mg/dL (74-106); Phosphorus 3.2 mg/dL (2.5-4.9); Potassium 4.4 mmol/L (3.5-5.1); Sodium Level 138 mmol/L (136-145)
[2020-11-24 08:35] VITALS: BP 102/63; PULSE 55; RESP 18; TEMP 36.8; O2SAT 100
--- NOTE | 2020-11-24 09:03 | PCM.DC ---
- Discharge Diagnoses Current Active Problems: Current Active and Chronic Problems Hypertension (Chronic) History of gastric bypass surgery (Chronic) History of anastomotic ulcer (Chronic) Acute GI bleed (Acute) Acute blood loss anemia (Acute) You will use the following diet at home:: Regular - soft bland diet for 3 days Your food should be the consistency of: Regular Discharge Activity: May Not Drive - for 1 week until sees PCP Weight Bearing Status: Weight bearing as tolerated Call your doctor if you observe: Fever of 101 or Higher, Coldness, Increased Pain, Numbness or Tingling, Change in Color, Inability to urinate, Inability to have a bowel movement, Using more than one pad per hour, Shortness of breath, Dizziness, Fainting spells, Swelling in the ankles, Chest pain, Prolonged hiccoughing, Increased palpitations (irregular heartbeat), Calf discomfort, Uncontrolled pain Allergies/Adverse Reactions: Allergies aspirin Allergy (Verified 11/23/20 07:41) Anaphylaxis Sulfa (Sulfonamide Antibiotics) Allergy (Verified 11/23/20 07:41) Hives Medications to take at Discharge Ascorbic Acid [Vitamin C] 500 mg PO BID #60 tab 11/24/20 Cyanocobalamin [Vitamin B12] 1,000 mcg PO DAILY@0800 #30 tab 11/24/20 Ferrous Sulfate [Ferosul] 325 mg PO DAILY #90 tab 11/24/20 Nicotine [Nicoderm Cq] 21 mg TD DAILY #30 patch 11/24/20 Pantoprazole Sodium [Protonix] 40 mg PO BID #60 tab 11/24/20 Sucralfate [Carafate] 1 gm PO 4X/DAY #1200 ml 11/24/20 The following prescriptions were given: Sucralfate [Carafate] 1 gm PO 4X/DAY #1200 ml Transmission Status: Pending to [facility] Ferrous Sulfate [Ferosul] 325 mg PO DAILY #90 tab Transmission Status: Pending to [facility] Nicotine [Nicoderm Cq] 21 mg TD DAILY #30 patch Transmission Status: Pending to [facility] Pantoprazole Sodium [Protonix] 40 mg PO BID #60 tab Transmission Status: Pending to [facility] Cyanocobalamin [Vitamin B12] 1,000 mcg PO DAILY@0800 #30 tab Transmission Status: Pending to [facility] Ascorbic Acid [Vitamin C] 500 mg PO BID #60 tab Transmission Status: Pending to [facility] Primary Care Physician: Care Physician,No Primary [Primary Care Provider] - Please follow up with your Primary Care Physician in: IN 2 WEEK Test Results: Test results from this visit will be discussed in further detail at your follow-up appointment, if applicable. Please Follow Up With: Berny Beltran MD When: in 2 weeks for marginal ulcer
--- NOTE | 2020-11-24 09:05 | DS.PCM_ITS ---
Discharge Date and Diagnosis - Problem List Patient Problems: Active and Suspected Problems Acute GI bleed (Acute) Acute blood loss anemia (Acute) Date of Admission: 11/23/20 Date of Discharge: 11/24/20 - Primary Discharge Diagnosis Acute Problems: Active Problems Acute GI bleed (Acute) Acute blood loss anemia (Acute) - Secondary Discharge Diagnosis Chronic Problems: Chronic Problems Hypertension (Chronic) History of gastric bypass surgery (Chronic) History of anastomotic ulcer (Chronic) Hospital Course and Treatment Summary of Care Provided: The patient is a 35 year old F with history of gastric bypass surgery and marginal/anastomotic ulcer came to ED with upper GI bleed and acute blood loss anemia 1. Acute upper GI bleed: Patient was admitted in PCU. Patient had 80 mg IV Protonix bolus. Continue Protonix IV 40 mg twice daily. Initially patient had drop in hemoglobin from 8.8-7.3 but patient received IV iron infusion and hemoglobin went up to 8.0. Patient had EGD which shows reflux esophagitis. 1 nonbleeding jejunal ulcer with pigmented material, suggestive of marginal ulcer. Dr. Beltran suggested stool for H. pylori antigen and H. pylori Ag antibody which are done and results pending. Folate 9.0. Advised to continue Protonix 40 mg p.o. twice daily for at least 2 to 3 weeks until she follows Dr. Beltran. Carafate 1 g 4 times daily. Prescription for Protonix, Carafate, ferrous sulfate, cyanocobalamin, vitamin C and nicotine patch also given. Rapid SARS-CoV-2 antigen negative. 2. Acute blood loss anemia: Patient hemoglobin 8.8 g with low MCV, MCH and MCHC and high RDW suggestive of iron deficiency anemia. 200 mg IV iron infusion was given. Rest as mentioned above 3. Morbid ascites status post gastric bypass surgery and history of marginal/stenotic ulcer 4. Hypertension: Currently blood pressure is normotensive. VTE prophylaxis: Low risk. Bilateral SCDs. Discharge medication reconciliation done. Discharge follow-up instructions completed. Discharge process discussed with the patient and all questions were answered to patient's satisfaction. Follow with Dr. Beltran in 2 weeks Total time spent, exact 35 minutes on discharge meds reconciliation, examination, coordination of care with nurses and ancillary staff, review of imaging and blood test and discussion with the patient on follow-up instructions Patient Problems: Active and Suspected Problems Acute GI bleed (Acute) Acute blood loss anemia (Acute) Objective: Seen and examined. Patient heart rate and blood pressure at baseline. Heart rate 60/min, blood pressure 102/63. Patient not feeling dizzy or lightheaded but weak. Last hemoglobin 8 g%. Physical exam General: Alert, Oriented x3, Cooperative HEENT: Atraumatic, PERRLA, EOMI, Normocephalic Oral: No Gingival or Mucosal Lesions/ Ulcerations Neck: Supple, No JVD, Negative Carotid Bruits Lungs: Air entry equal in bilateral lungs. No crepitation/rhonchi Cardiovascular: Regular rate, Regular Rhythm, Normal S1, Normal S2, No murmurs Abdomen: Bowel Sounds Present, Soft, Non Tender, Non-Distended. No palpable mass : No renal angle tenderness. No suprapubic tenderness. Extremities: No edema, Capillary Refill Less than 3 Seconds Skin: No rashes, No breakdown Musculoskeletal: No Tenderness to Palpation of Joints or Extremities Neurological: Cranial nerves II-XII grossly intact, Deep Tendon Reflexes 2+/4 and Symmetrical, Neuro grossly intact Psych/Mental Status: Normal Affect, Appropriate. - Physical Exam Vitals/I&O's: Vital Signs Temp Pulse Resp BP Pulse Ox 98.3 F 55 L 18 102/63 100 11/24/20 08:35 11/24/20 08:35 11/24/20 08:35 11/24/20 08:35 11/24/20 08:35 Oxygen Delivery Method Room Air Weight: 160 lb Body Mass Index (BMI) 25.8 Intake and Output for Last 24 Hours 11/22/20 11/23/20 11/24/20 23:59 23:59 23:59 Intake Total 2253.58 1360 / 1360 Balance 4.58 1360 / 1360 Microbiology Past 72 Hours 11/23/20 09:10 Mucosa - Nose SARS-CoV-2 Antigen (Rapid) - Final Laboratory Results 11/23/20 08:10: Magnesium 2.2 11/23/20 08:42: Blood Type A NEGATIVE, Antibody Screen NEGATIVE 11/23/20 14:15: Hgb 7.6 L, Hct 26.7 L 11/23/20 20:08: Hgb 7.3 L, Hct 26.4 L 11/24/20 07:34: WBC 5.0, RBC 4.16 L, Hgb 8.0 L, Hct 27.9 L, MCV 67.1 L, MCH 19.2 L, MCHC 28.7 L, RDW Std Deviation 42.5, RDW Coeff of Deborah 18.1 H, Plt Count 389, MPV 8.9, Immature Gran % (Auto) 0.400, Neut % (Auto) 57.9, Lymph % (Auto) 29.3, [place] % (Auto) 10.2 H, Eos % (Auto) 1.2, Baso % (Auto) 1.0, Absolute Neuts (auto) 2.9, Absolute Lymphs (auto) 1.47, Nucleated RBC % 0.4 11/24/20 07:34: Sodium 138, Potassium 4.4, Chloride 110 H, Carbon Dioxide 23.0, Anion Gap 5, BUN 5 L, Creatinine 0.61, Estim Creat Clear Calc 119.36, Est GFR (MDRD) Af Amer 141, Est GFR (MDRD) Non-Af 117, BUN/Creatinine Ratio 8.1 L, Glucose 84, Calcium 8.7, Phosphorus 3.2 Current Medications Acetaminophen (Acetaminophen 325 Mg Tablet) 650 mg PO Q6H PRN PRN PRN Reason: Pain Score 1-10/Temp > 100.7 F Last Admin: 11/23/20 12:32 Dose: 650 mg Documented by: Albuterol Sulfate (Albuterol 2.5 Mg/3 Ml Vial.Neb.) 2.5 mg INHALATION Q2H PRN PRN PRN Reason: SOB/Wheezing Hydromorphone HCl (Hydromorphone 0.5 Mg/0.5 Ml Syringe) 0.5 mg IV Q4H PRN PRN PRN Reason: Pain Score 6-10 Last Admin: 11/24/20 05:16 Dose: 0.5 mg Documented by: Sodium Chloride () 1,000 mls @ 125 mls/hr IV .Q8H AVLEINA Last Admin: 11/24/20 06:24 Dose: 125 mls/hr Documented by: Sodium Chloride () 500 mls @ 15 mls/hr IV PRN PRN PRN Reason: Blood Transfusion Sodium Chloride () 250 mls @ 15 mls/hr IV .[id number] PRN PRN Reason: Saline Flush Sodium Chloride () 250 mls @ 15 mls/hr IV .[id number] PRN PRN Reason: Additional IVPB Infusion Pantoprazole Sodium 40 mg/ (Sodium Chloride) 110 mls @ 330 mls/hr IV Q12 [facility] Last Admin: 11/24/20 08:43 Dose: 330 mls/hr Documented by: Nicotine (Nicotine 21 Mg Patch) 21 mg TD DAILY [facility] Last Admin: 11/24/20 08:43 Dose: 21 mg Documented by: Nutritional Formula (Lactose Free) (Ensure Enlive 120 Ml Liquid) 120 ml PO 4X/DAY [facility] Last Admin: 11/24/20 08:43 Dose: 120 ml Documented by: Ondansetron HCl (Ondansetron 4 Mg/2 Ml Vial) 4 mg IV Q8H PRN PRN PRN Reason: NAUSEA/VOMITING Oxycodone HCl (Oxycodone 5 Mg Tablet) 5 mg PO Q4H PRN PRN PRN Reason: Pain Score 4-5 Last Admin: 11/23/20 12:32 Dose: 5 mg Documented by: Prochlorperazine Edisylate (Prochlorperazine 10 Mg/2 Ml Vial) 5 mg IV Q4H PRN PRN PRN Reason: Breakthrough Nausea/Vomiting Sodium Chloride (0.9% Saline Lock 10 Ml Syringe) 10 - 40 ml IV UD PRN PRN Reason: SALINE FLUSH Last Admin: 11/23/20 18:19 Dose: 10 ml Documented by: Sucralfate (Sucralfate 1 Gm Tablet) 1 gm PO 1HR_ACHS [facility] Last Admin: 11/24/20 06:24 Dose: 1 gm Documented by: Discharge Activity: May Not Drive - for 1 week until sees PCP Weight Bearing Status: Weight bearing as tolerated Call your doctor if you observe: Fever of 101 or Higher, Coldness, Increased Pain, Numbness or Tingling, Change in Color, Inability to urinate, Inability to have a bowel movement, Using more than one pad per hour, Shortness of breath, Dizziness, Fainting spells, Swelling in the ankles, Chest pain, Prolonged hiccoughing, Increased palpitations (irregular heartbeat), Calf discomfort, Uncontrolled pain Home Medications: Medications to take at Discharge Ascorbic Acid [Vitamin C] 500 mg PO BID #60 tab 11/24/20 Cyanocobalamin [Vitamin B12] 1,000 mcg PO DAILY@0800 #30 tab 11/24/20 Ferrous Sulfate [Ferosul] 325 mg PO DAILY #90 tab 11/24/20 Nicotine [Nicoderm Cq] 21 mg TD DAILY #30 patch 11/24/20 Pantoprazole Sodium [Protonix] 40 mg PO BID #60 tab 11/24/20 Sucralfate [Carafate] 1 gm PO 4X/DAY #1200 ml 11/24/20 Following Prescriptions Were Given to Patient: Sucralfate [Carafate] 1 gm PO 4X/DAY #1200 ml Transmission Status: Received by [facility] Ferrous Sulfate [Ferosul] 325 mg PO DAILY #90 tab Transmission Status: Received by [facility] Nicotine [Nicoderm Cq] 21 mg TD DAILY #30 patch Transmission Status: Received by [facility] Pantoprazole Sodium [Protonix] 40 mg PO BID #60 tab Transmission Status: Received by [facility] Cyanocobalamin [Vitamin B12] 1,000 mcg PO DAILY@0800 #30 tab Transmission Status: Received by [facility] Ascorbic Acid [Vitamin C] 500 mg PO BID #60 tab Transmission Status: Received by [facility] Primary Care Physician: Care Physician,No Primary [Primary Care Provider] - Please follow up with your Primary Care Physician in: IN 2 WEEK Please Follow Up With: Berny Beltran MD When: in 2 weeks for marginal ulcer Medical Necessity - Tobacco Use Smoking Status: Former smoker Meaningful Use Info Meaningful Use Diagnoses (Choose all that apply): None applicable Inpatient E&M: [id number] [facility]
[2020-11-26 09:56] LABS: Vitamin B12 317 pg/mL (211-911)
[2020-11-27 12:12] LABS: H. PYLORI STOOL AG Negative (Negative); H. Pylori Antibody (IgG) 0.33 (0.00-0.79)
== END 2020-11-24 09:04 | disposition home or self-care (01) ==
LOC: ED 08:21 → PCU 09:18
PROVIDERS: Surgery; Admitting Provider Internal Medicine; Emergency Provider Emergency Medicine; Visit Provider Internal Medicine
PROC: 0DJ08ZZ Inspection of Upper Intestinal Tract, Via Natural or Artificial Opening Endoscopic (ICD-10-PCS; CPT 43235; principal; 2020-11-23 08:55)
DX: K21.00 Gastro-esophageal reflux disease with esophagitis, without bleeding (principal); D62 Acute posthemorrhagic anemia; K28.4 Chronic or unspecified gastrojejunal ulcer with hemorrhage; Z98.84 Bariatric surgery status; I10 Essential (primary) hypertension; Z87.891 Personal history of nicotine dependence
CPT/HCPCS: 43235; 36415; 80048; 80053; 82607; 82746; 83690; 83735; 84100; 85014; 85018; 85025; 86677; 86850; 86900; 86901; 87426; 96361; 96365; 96366; 96367; 96375; 96376; 97802; 99218; 99251; 99284; 99406; J7030; J7050; A4216; G0378; G0463; J2405; J2916; J3490

== ENCOUNTER 2020-11-25 15:31 | Emergency (ER) | payer SELFPAY ==
[2020-11-23 12:37] VITALS: BMI 25.8
[2020-11-25 15:32] VITALS: BP 109/64; PULSE 76; RESP 14; TEMP 36; O2SAT 99; BMI 25.8
--- NOTE | 2020-11-25 16:11 | EKG12_ITS ---
Test Reason : ABD PAIN Blood Pressure : / mmHG Vent. Rate : 066 BPM Atrial Rate : 066 BPM P-R Int : 138 ms QRS Dur : 086 ms QT Int : 416 ms P-R-T Axes : 030 052 050 degrees QTc Int : 436 ms Normal sinus rhythm Normal ECG Confirmed by KENNEDY OSWALD, OWEN ([id number]), editor greeting card IZABELLA HERRMANN ([id number]) on 11/26/2020 1:11:25 PM Referred By: Confirmed By:OWEN BENAVIDES MD
--- NOTE | 2020-11-25 16:12 | ED.VIS.GEN ---
History of Present Illness Chief Complaint: Abd Pain Informant: Patient Narrative: 35-year-old female presenting for abdominal pain. She tells me that she was admitted here for upper GI bleed had endoscopy was found to have an ulcer. She has a history of gastric bypass 5 years ago at [facility]. She is unsure of her surgeon. She was discharged home yesterday. She states that her pain in her epigastrium and left upper quadrant is severe and worse. It was controlled in the hospital pain medication but states that she did not have any pain medication at home. She states that she has had some nausea and some vomiting. She is described the vomit as slimy and specks. She denies any dyspnea. She states that she has passed out from the pain. She tells me that this is the same pain she had in the hospital. No bowel movement since yesterday in the hospital. Pression's from the inpatient EGD are: Impressions : - LA Grade A reflux esophagitis. No specimens collected. - Normal cardia. - One non-bleeding jejunal ulcer with pigmented material No specimens collected. - Past Medical History (1) Acute GI bleed Status: Chronic (2) Acute blood loss anemia Status: Chronic (3) History of anastomotic ulcer Status: Chronic (4) History of gastric bypass surgery Status: Chronic (5) Hypertension Status: Chronic Past Medical History - Allergies and Home Meds Allergies/Adverse Reactions: Allergies aspirin Allergy (Verified 11/25/20 15:32) Anaphylaxis Sulfa (Sulfonamide Antibiotics) Allergy (Verified 11/25/20 15:32) Hives Primary Care Physician: Care Physician,No Primary [Primary Care Provider] - Surgical History: appendectomy, gastric bypass - Patient had significant complications from her gastric bypass. Smoking Status: Former smoker Drugs: None - Family History Paternal Family History: Reports: Heart Disease Review of Systems General: Denies: Chills, Fever, Sweats Eyes: Denies: Visual changes - bilaterally, Diplopia ENT: Denies: Rhinorrhea, Sore throat Cardiovascular: Reports: - - Syncope. Denies: Chest pain, Palpitations Respiratory: Denies: Dyspnea, Cough, Dyspnea on exertion Gastrointestinal: Reports: Abdominal pain, Nausea, Vomiting, Constipation. Denies: Diarrhea, Melena, Hematochezia Genitourinary: Denies: Dysuria, Hematuria, Frequency Musculoskeletal: Denies: Back pain, Extremity Pain Skin: Denies: Rash, Wounds Neurological: Denies: Headache, Weakness, Numbness Physical Exam Vital Signs/Narrative: Vital Signs Temp Pulse Resp BP Pulse Ox 11/25/20 15:32 96.8 F L 76 14 109/64 99 Inital Vital Signs reviewed: Yes General: Well nourished, Well developed, No Acute Distress Head: Normocephalic, Atraumatic Eyes: Perrl, EOMI ENT: Moist mucous membranes, No rhinorrhea Neck: Supple, Nontender Cardiovascular: Regular rate, Regular rhythm, No murmurs Respiratory: No distress, CTA bilaterally, Chest nontender Abdomen: Soft, Nondistended, Normal bowel sounds, Tender Back: Nontender, Normal Inspection Extremities: Nontender, No edema Skin: Normal color, No rash Neurological: Alert, Oriented x3, Cranial nerves II-XII grossly intact, Normal Strength, Normal Sensation Psychological: Normal affect, Normal Mood Diagnostic/Tx/Re-eval Chest X-Ray - ED: 1 View Clinical Impression(s) from Imaging Studies Chest X-Ray 11/25/20 17:05 IMPRESSION: Normal x-ray examination of the chest. Electronically Signed: Doris Chaudhry MD at 17:16 EST Tel , Service support , Abdomen/Pelvis CT 11/25/20 17:21 IMPRESSION: 1. Technically limited exam. 2. Questionable finding in the pelvis, unclear etiology. Consider repeat examination, preferably after some bowel contents evacuation, and with intravenous and oral and possibly rectal contrast to fully evaluate the pelvis. Appendiceal abscess or adnexal abscesses are in the differential diagnosis. Electronically Signed: Doris Chaudhry MD at 17:48 EST Tel , Service support , Laboratory Last Values WBC 6.5 K/mm3 (4.4-11.0) 11/25/20 16:56 RBC 5.05 M/mm3 (4.2-5.4) 11/25/20 16:56 Hgb 9.3 g/dL (12.0-15.0) L 11/25/20 16:56 Hct 33.2 % (37-47) L 11/25/20 16:56 MCV 65.7 fL (81-99) L 11/25/20 16:56 MCH 18.4 pg (27.0-32.0) L 11/25/20 16:56 MCHC 28.0 g/dL (32-36) L 11/25/20 16:56 RDW Std Deviation 41.8 fl (35.1-43.9) 11/25/20 16:56 RDW Coeff of Deborah 18.4 % (11.6-14.6) H 11/25/20 16:56 Plt Count 503 K/mm3 (150-450) H 11/25/20 16:56 MPV 8.6 fl (6.2-12.0) 11/25/20 16:56 Immature Gran % (Auto) 0.200 % (0.0-0.9) 11/25/20 16:56 Neut % (Auto) 62.5 % (47-70) 11/25/20 16:56 Lymph % (Auto) 29.5 % (19-41) 11/25/20 16:56 [place] % (Auto) 6.6 % (0-10) 11/25/20 16:56 Eos % (Auto) 0.3 % (0-5) 11/25/20 16:56 Baso % (Auto) 0.9 % (0-1) 11/25/20 16:56 Absolute Neuts (auto) 4.0 X10^3/uL (2.0-7.7) 11/25/20 16:56 Absolute Lymphs (auto) 1.91 X10^3/uL (0.83-4.51) 11/25/20 16:56 Nucleated RBC % 0 % (0-5) 11/25/20 16:56 Sodium 137 mmol/L (136-145) 11/25/20 16:56 Potassium 3.8 mmol/L (3.5-5.1) 11/25/20 16:56 Chloride 106 mmol/L (98-107) 11/25/20 16:56 Carbon Dioxide 25.0 mmol/L (21.0-32.0) 11/25/20 16:56 Anion Gap 6 (5-15) 11/25/20 16:56 BUN 8 mg/dL (7-18) 11/25/20 16:56 Creatinine 0.78 mg/dL (0.55-1.02) 11/25/20 16:56 Estim Creat Clear Calc 93.34 ml/min 11/25/20 16:56 Est GFR (MDRD) Af Amer 107 mL/min (>60) 11/25/20 16:56 Est GFR (MDRD) Non-Af 88 mL/min (>60) 11/25/20 16:56 BUN/Creatinine Ratio 10.3 RATIO (10-20) 11/25/20 16:56 Glucose 87 mg/dL (74-106) 11/25/20 16:56 Calcium 9.8 mg/dL (8.5-10.1) 11/25/20 16:56 Total Bilirubin 0.30 mg/dL (0.20-1.00) 11/25/20 16:56 AST 15 U/L (15-37) 11/25/20 16:56 ALT 15 U/L (13-56) 11/25/20 16:56 Alkaline Phosphatase 85 U/L (45-117) 11/25/20 16:56 Troponin I < 0.015 ng/mL (<0.045) 11/25/20 16:56 Total Protein 8.5 g/dL (6.4-8.2) H 11/25/20 16:56 Albumin 3.9 g/dL (3.2-5.0) 11/25/20 16:56 Globulin 4.6 g/dL (2.2-4.2) H 11/25/20 16:56 Albumin/Globulin Ratio 0.8 RATIO (0.9-2.4) L 11/25/20 16:56 Lipase 195 U/L (73-393) 11/25/20 16:56 - EKG Initial EKG Interpretation: Sinus Rhythm - KG demonstrates a normal sinus rhythm at a rate of 66 without ACS features or ectopy - Medical Decision Making A chest x-ray is obtained to evaluate for the presence of free air under the diaphragm. Impression of this single view portable chest x-ray is no acute process. Unfortunately there are numerous loops of bowel in the left upper quadrant and gastric bubble. Therefore a noncontrasted CT was obtained due to the patient's difficult IV access. This did not demonstrate any obvious free air. Patient's hemoglobin is actually higher than it was yesterday. BUN/creatinine normal. Patient received viscous lidocaine is been more comfortable. Patient has not had a bowel movement since yesterday and she states that yesterday's bowel movement was difficult. We will give her a bottle of magnesium citrate. Recommend that she continue to take her medication she was prescribed. I feel that narcotic pain medication would be contraindicated given that she is having some constipation. She also tells me that the pain she has been feeling has also been around for about 5 years because of all the problems and complications she has had since the gastric bypass. Follow-up already arranged with surgery. ED Disposition - Plan for ED Patient: Disposition: Home or Assisted Living Diagnosis: Gastritis, Acute abdominal pain, Jejunal ulcer, Constipation Instructions: ED Gastritis (Adult), ED Constipation (Adult) Prescriptions: Magnesium Citrate [Citrate Of Magnesia] 300 ml PO X1 #1 bottle Prescription Printed Additional Instructions: Follow-up with your doctors as scheduled.
--- NOTE | 2020-11-25 16:21 | NURSING ---
NO OLD EKGS
[2020-11-25 17:05] LABS: Absolute Lymphocyte Count 1.91 X10^3/uL (0.83-4.51); Basophil# 0.06 X10^3/uL; Basophil% 0.9 % (0-1); Eosinophil# 0.02 X10^3/uL; Eosinophils% 0.3 % (0-5); Hematocrit 33.2 % (37-47); Hemoglobin 9.3 g/dL (12.0-15.0); Lymphocyte # 1.91 X10^3/ul (4.0); Lymphocyte % 29.5 % (19-41); Mean Corpuscular Hgb 18.4 pg (27.0-32.0); Mean Corpuscular Volume 65.7 fL (81-99); Mean Platelet Vol. 8.6 fl (6.2-12.0); Monocyte# 0.43 X10^3/uL; Monocyte% 6.6 % (0-10); NRBC Flagged by Analyzer 0 % (0-5); Neutrophil # 4.04 X10^3/uL (2.7-7.7); Neutrophil % 62.5 % (47-70); Platelet Count 503 K/mm3 (150-450); RBC Distribution Width CV 18.4 % (11.6-14.6); RBC Distribution Width SD 41.8 fl (35.1-43.9); Red Blood Count 5.05 M/mm3 (4.2-5.4); White Blood Count 6.5 K/mm3 (4.4-11.0)
--- NOTE | 2020-11-25 17:05 | RAD_ITS ---
STUDY: X-RAY CHEST REASON FOR EXAM: Female, 35 years old. abdomen pain and dizziness. TECHNIQUE: Frontal view of the chest COMPARISON: None. FINDINGS: The lungs are clear and expanded. There is no demonstrated pleural abnormality. Normal size heart. Normal mediastinum and rocco. Normal visualized pulmonary arteries. Normal visualized aortic arch and descending thoracic aorta. Normal visualized thoracic spine. Normal visualized ribs, clavicles, and shoulders. There is no demonstrated abnormality of the visualized soft tissue structures of the upper abdomen. RAD/Chest 1 View (Portable) IMPRESSION: Normal x-ray examination of the chest. Electronically Signed: Doris Chaudhry MD at 17:16 EST Tel , Service support ,
[2020-11-25 17:20] VITALS: BP 115/66; PULSE 65; RESP 18; O2SAT 100
--- NOTE | 2020-11-25 17:21 | CT_ITS ---
STUDY: CT ABDOMEN AND PELVIS WITHOUT CONTRAST REASON FOR EXAM: Female, 35 years old. Abdominal pain, gastric bypass ulcer RADIATION DOSAGE (If Supplied By Facility): CTDIvol = ( 6.51 ) mGy, DLP = ( 327.00 ) mGycm TECHNIQUE: Transaxial images were obtained from the dome of the diaphragm to the symphysis pubis without oral contrast, and without intravenous contrast. Sagittal and coronal images were reconstructed. Individualized dose optimization techniques were used for this CT. COMPARISON: None. FINDINGS: Examination is mildly/moderately limited due to lack of IV contrast and suboptimally low radiation dose.. Vascular and solid organ assessment is limited. Soft tissue resolution is poor and image noise is elevated making detection of subtle and small structures difficult. The visualized lung bases are unremarkable. The visualized portions of the heart are within normal limits. Normal liver. Normal gallbladder and extrahepatic biliary system. Normal spleen. Normal pancreas. Normal bilateral adrenal glands. Normal right kidney. Normal left kidney. There is no intestinal obstruction. There is gastrointestinal surgery with anastomosis in the left lower quadrant and gastric suture line. Appendix is not seen. There is an ill-defined structure in the right posterior lower pelvis, visualized with difficulty with probably adjacent small amount of fluid in the right presacral pararectal space. Normal abdominal aorta. Normal inferior vena cava. Normal retroperitoneum. Normal urinary bladder. Normal abdominal wall. Normal osseous structures. CT/Abdomen/Pelvis without Cont IMPRESSION: 1. Technically limited exam. 2. Questionable finding in the pelvis, unclear etiology. Consider repeat examination, preferably after some bowel contents evacuation, and with intravenous and oral and possibly rectal contrast to fully evaluate the pelvis. Appendiceal abscess or adnexal abscesses are in the differential diagnosis. Electronically Signed: Doris Chaudhry MD at 17:48 EST Tel , Service support ,
[2020-11-25 17:26] LABS: ALB/GLOB Ratio 0.8 RATIO (0.9-2.4); AST(SGOT) 15 U/L (15-37); Alanine Aminotransfer ALT/SGPT 15 U/L (13-56); Albumin, Serum 3.9 g/dL (3.2-5.0); Alkaline Phosphatase 85 U/L (45-117); Anion Gap 6 (5-15); BUN 8 mg/dL (7-18); BUN/Creat Ratio 10.3 RATIO (10-20); Calcium,Total 9.8 mg/dL (8.5-10.1); Chloride 106 mmol/L (98-107); Creatinine, Serum 0.78 mg/dL (0.55-1.02); EST Glomerular Filtration Rate 88 mL/min (>60); Est Glom Filt Rate - Afr Amer 107 mL/min (>60); Estimated Creatinine Clearance 93.34 ml/min; Globulin 4.6 g/dL (2.2-4.2); Glucose 87 mg/dL (74-106); Lipase 195 U/L (73-393); Potassium 3.8 mmol/L (3.5-5.1); Protein, Total 8.5 g/dL (6.4-8.2); Sodium Level 137 mmol/L (136-145)
[2020-11-25] MEDS: Magnesium Citrate 300 ML PO (18:16)
== END 2020-11-25 18:17 | disposition home or self-care (01) ==
PROVIDERS: Emergency Provider Emergency Medicine
DX: K29.70 Gastritis, unspecified, without bleeding (principal); K28.9 Gastrojejunal ulcer, unspecified as acute or chronic, without hemorrhage or perforation; K21.00 Gastro-esophageal reflux disease with esophagitis, without bleeding; I10 Essential (primary) hypertension; Z98.84 Bariatric surgery status; Z79.899 Other long term (current) drug therapy; Z87.891 Personal history of nicotine dependence
CPT/HCPCS: 71045; 74176; 80053; 83690; 84484; 85025; 93005; 99285; A4216